=== PATIENT | female | born 1995 | race Caucasian/White ===

== ENCOUNTER 2016-11-10 23:24 | Emergency (ER) | payer SELFPAY ==
[~2016-11-10] VITALS: Ht 172.7 cm; Wt 120.0 kg
[~2016-11-10 23:24] MED LIST: AMOX875T PO; ERYTOIN10 LEFT EYE
[2016-11-10 23:27] VITALS: BP 147/107; PULSE 97; RESP 15; TEMP 99; O2SAT 97
[2016-11-11] MEDS ORDERED: SODIUM CHLOR 0.9% 1000 ML INJ 1,000 ML IV SCH (00:20)
[2016-11-11] MEDS ORDERED: LIDOCAINE VISCOUS 2% SOLN 15 ML UDC PO ONE (00:30)
[2016-11-11] MEDS ORDERED: SODIUM CHLORIDE 0.9% FLUSH 5 ML FLUSH IVF PRN (00:30)
[2016-11-11] MEDS ORDERED: ALUMINUM/MAGNESIUM/SIMETH 30 ML CUP PO ONE ×2 (00:30→00:45)
[2016-11-11 00:42] LABS: AUTOMATED NEUTROPHIL # 4.5 TH/MM3 (1.8-7.7); BASOPHIL # 0.1 TH/MM3 (0-0.2); BASOPHIL % 0.7 % (0.0-2.0); EOSINOPHIL # 0.3 TH/MM3 (0-0.4); EOSINOPHIL % 3.4 % (0.0-4.0); HEMATOCRIT 33.5 % (35.0-46.0); HEMO FLAGS DIFF FINAL; LYMPH % 34.7 % (9.0-44.0); MEAN CORPUSCULAR HEMOGLOBIN 26.3 PG (27.0-34.0); MEAN CORPUSCULAR HGB CONC 33.7 % (32.0-36.0); NEUT % 52.2 % (16.0-70.0); PLATELET COUNT 304 TH/MM3 (150-450); RED BLOOD COUNT 4.29 MIL/MM3 (4.00-5.30); RED CELL DISTRIBUTION WIDTH 14.4 % (11.6-17.2); WHITE BLOOD COUNT 8.7 TH/MM3 (4.0-11.0)
[2016-11-11 00:48] LABS: BLOOD, URINE NEG (NEG); COMMENT (UR) CULT NOT INDICATED; CULTURE IF INDICATED CULT NOT INDICATED; GLUCOSE,URINE NEG (NEG); KETONE, URINE NEG (NEG); MUCUS URINE FEW /lpf (OCC); NITRITE,URINE NEG (NEG); PH, URINE 6.5 (5.0-8.5); SQUAMOUS EPITHELIAL CELL URINE 27 /hpf (0-5); URINE COLOR YELLOW (YELLW/STRAW)
[2016-11-11] MEDS ORDERED: BACT800T5 PO (01:02)
--- NOTE | 2016-11-11 01:03 | PD ---
HPI Chief Complaint: Abdominal Pain Time Seen by Provider: 23:36 Travel History International Travel<30 days: No Contact w/Intl Traveler<30days: No Traveled to known affect area: No History of Present Illness HPI 21-year-old female arrives with 2 weeks of abdominal pain. Initially was suprapubic and has since moved to the epigastric distribution. Onset gradual. She did have some vaginal bleeding in the first week that was not associated with normal menstruation. She denies vaginal discharge. She's had no fever however has experienced nausea with no vomiting. She also reports diarrhea daily for the past 2 weeks. Stool is nonbloody. Patient states she quit smoking tobacco 3 weeks prior. PFSH Past Medical History Hx Anticoagulant Therapy: No ADD: Yes ADHD: Yes Blood Disorders: No Anxiety: Yes Depression: Yes Heart Rhythm Problems: No Cancer: No Cardiovascular Problems: Yes (AORTIC INSUFF) High Cholesterol: No Chemotherapy: No Chest Pain: No Congestive Heart Failure: No Cerebrovascular Accident: No Coronary Artery Disease: Yes (AORTIC INSUFF) Developmental Delay: No Diabetes: No Diminished Hearing: No Endocrine: No Gastrointestinal Disorders: No GERD: Yes Genitourinary: Yes (MULTIPLE UTI'S & YEAST INFECTIONS) Headaches: Yes Heparin Induced Thrombocytopen: No Immune Disorder: No Implanted Vascular Access Dvce: No Musculoskeletal: No Neurologic: Yes (migraines ) Psychiatric: Yes Reproductive: No Respiratory: No Immunizations Current: Yes Migraines: No Seizures: No Thyroid Disease: No Ulcer: No PNEUMOCCOCAL Vaccine (Year): 3 ?: Unknown LMP: 10/22/16 : 3 Para: 0 Miscarriage: 3 : 0 Past Surgical History Hysterectomy: No Other Surgery: Yes (ENDOSCOPY) Social History Alcohol Use: No Tobacco Use: No Substance Use: No Allergies-Medications (Allergen,Severity, Reaction): Coded Allergies: Bee Sting (Verified Allergy, Severe, SWELLING, 11/10/16) Dilaudid (Verified Allergy, Severe, SEVERE ITCH, 11/10/16) Reported Meds & Prescriptions Reported Meds & Active Scripts Active Bactrim DS (Sulfamethoxazole-Trimethoprim) 800-160 Mg Tab 1 Tab PO BID Review of Systems Except as stated in HPI: all other systems reviewed are Neg Physical Exam Narrative GENERAL: 21-year-old female pleasant SKIN: Warm and dry. HEAD: Atraumatic. Normocephalic. EYES: Pupils equal and round. No scleral icterus. No injection or drainage. ENT: No nasal bleeding or discharge. Mucous membranes pink and moist. NECK: Trachea midline. No JVD. CARDIOVASCULAR: Regular rate and rhythm. No murmur appreciated. RESPIRATORY: No accessory muscle use. Clear to auscultation. Breath sounds equal bilaterally. GASTROINTESTINAL: Soft. Minimal tenderness to palpation epigastrium. MUSCULOSKELETAL: No obvious deformities. No clubbing. No cyanosis. No edema. NEUROLOGICAL: Awake and alert. No obvious cranial nerve deficits. Motor grossly within normal limits. Normal speech. PSYCHIATRIC: Appropriate mood and affect; insight and judgment normal. Data Data Last Documented VS Vital Signs Date Time Temp Pulse Resp B/P Pulse Ox O2 Delivery O2 Flow Rate FiO2 11/10/16 23:44 18 11/10/16 23:27 99.0 97 147/107 97 Room Air Orders Complete Blood Count With Diff (11/11/16 00:20) Comprehensive Metabolic Panel (11/11/16 00:20) Lipase (11/11/16 00:20) Urinalysis - C+S If Indicated (11/11/16 00:20) Iv Access Insert/Monitor (11/11/16 00:20) Ecg Monitoring (11/11/16 00:20) Oximetry (11/11/16 00:20) Sodium Chlor 0.9% 1000 Ml Inj (Ns 1000 M (11/11/16 00:20) Sodium Chloride 0.9% Flush (Ns Flush) (11/11/16 00:30) Al-Mag Hy-Si 40-40-4 Mg/Ml Liq (Mag-Al P (11/11/16 00:30) Lidocaine 2% Viscous (Xylocaine 2% Visco (11/11/16 00:30) Ed Urine Pregnancytest Poc (11/11/16 00:20) Al-Mag Hy-Si 40-40-4 Mg/Ml Liq (Mag-Al P (11/11/16 00:45) Labs Laboratory Tests Test 11/11/16 00:30 White Blood Count 8.7 TH/MM3 Red Blood Count 4.29 MIL/MM3 Hemoglobin 11.3 GM/DL Hematocrit 33.5 % Mean Corpuscular Volume 78.0 FL Mean Corpuscular Hemoglobin 26.3 PG Mean Corpuscular Hemoglobin 33.7 % Concent Red Cell Distribution Width 14.4 % Platelet Count 304 TH/MM3 Mean Platelet Volume 8.6 FL Neutrophils (%) (Auto) 52.2 % Lymphocytes (%) (Auto) 34.7 % Monocytes (%) (Auto) 9.0 % Eosinophils (%) (Auto) 3.4 % Basophils (%) (Auto) 0.7 % Neutrophils # (Auto) 4.5 TH/MM3 Lymphocytes # (Auto) 3.0 TH/MM3 Monocytes # (Auto) 0.8 TH/MM3 Eosinophils # (Auto) 0.3 TH/MM3 Basophils # (Auto) 0.1 TH/MM3 CBC Comment DIFF FINAL Differential Comment Urine Color YELLOW Urine Turbidity HAZY Urine pH 6.5 Urine Specific Rayle 1.023 Urine Protein TRACE mg/dL Urine Glucose (UA) NEG mg/dL Urine Ketones NEG mg/dL Urine Occult Blood NEG Urine Nitrite NEG Urine Bilirubin NEG Urine Urobilinogen LESS THAN 2.0 MG/DL Urine Leukocyte Esterase MOD Urine RBC 2 /hpf Urine WBC 10 /hpf Urine Squamous Epithelial 27 /hpf Cells Urine Mucus FEW /lpf Microscopic Urinalysis Comment CULT NOT INDICATED Sodium Level 142 MEQ/L Potassium Level 4.0 MEQ/L Chloride Level 108 MEQ/L Carbon Dioxide Level 27.3 MEQ/L Anion Gap 7 MEQ/L Blood Urea Nitrogen 11 MG/DL Creatinine 0.65 MG/DL Estimat Glomerular Filtration 115 ML/MIN Rate Random Glucose 87 MG/DL Calcium Level 8.9 MG/DL Total Bilirubin 0.3 MG/DL Aspartate Amino Transf 17 U/L (AST/SGOT) Alanine Aminotransferase 17 U/L (ALT/SGPT) Alkaline Phosphatase 79 U/L Total Protein 7.5 GM/DL Albumin 3.3 GM/DL Lipase 94 U/L [facility] Medical Decision Making Medical Screen Exam Complete: Yes Emergency Medical Condition: Yes Medical Record Reviewed: Yes Differential Diagnosis Constipation, Gastritis, Acute Cholecystitis, Biliary Colic, Pancreatitis, CALIX , Hepatitis, Bowel Obstruction, Cystitis, Mesenteric Ischemia, AAA, Appendicitis , Renal Stone/Hydronephrosis, GERD, perforated viscous Narrative Course Urinalysis: Possible UTI versus contamination Urine : Negative CBC & BMP Diagram 11/11/16 00:30 LFTs normal Lipase normal The patient is resting comfortably and feels better, is alert and in no distress. The patients results and examination findings were discussed. The repeat examination is unremarkable and benign. The history, exam, diagnostic testing, and current condition do not suggest any significant pathology to warrant further testing, continued ED treatment, admission, or surgical evaluation at this point. The vital signs have been stable. The patient does not have uncontrollable pain, intractable vomiting, or other significant symptoms. The patient's condition is stable and appropriate for discharge. The patient will pursue further outpatient evaluation with a primary care physician or other designated or consulting physician as indicated in the discharge instructions. The patient expressed understanding and was agreeable with this plan. Diagnosis Primary Impression: Cystitis Additional Impression: Diarrhea Qualified Code: R19.7 - Diarrhea, unspecified type Referrals: Primary Care Physician 2 days Additional Instructions: You have a choice when it comes to health care, and we are glad that you chose [facility]. Hopefully, we have met your expectations on today's visit. You are welcome to return to [facility] at any time, as we are committed to meeting the health care needs of our community. Med/Other Pt SpecificInfo: Prescription(s) given Scripts Sulfamethoxazole-Trimethoprim (Bactrim DS)800-160 Mg Tab1 Tab PO BID #6 TAB Ref 0 Prov:Luis Enrique Norton MD 11/11/16 Disposition: 01 DISCHARGE HOME Condition: Stable Luis Enrique Norton MD Nov 11, 2016 01:03
[2016-11-11 01:13] LABS: ALKALINE PHOSPHATASE 79 U/L (45-117); TOTAL BILIRUBIN ADULT 0.3 MG/DL (0.2-1.0)
[2016-11-11 01:17] LABS: ALT (GPT) 17 U/L (10-53); ANION GAP 7 MEQ/L (5-15); AST (GOT) 17 U/L (15-37); BICARBONATE 27.3 MEQ/L (21.0-32.0); BLOOD UREA NITROGEN 11 MG/DL (7-18); CHLORIDE 108 MEQ/L (98-107); GLOMERULAR FILTRATION RATE 115 ML/MIN (>89); SODIUM (NA) 142 MEQ/L (136-145)
[2016-11-11] MEDS ORDERED: KETOROLAC TROMETHAMINE 30 MG/ML (IVP) VIAL IV PUSH ONE (02:15)
== END 2016-11-11 02:57 | disposition home or self-care (01) ==
LOC: NEPE 23:24
DX: N30.90 Cystitis, unspecified without hematuria (principal); R19.7 Diarrhea, unspecified
CPT/HCPCS: 80053; 81001; 83690; 84703; 85025; 96374; 99284; J1885; J7030

== ENCOUNTER 2017-09-27 13:45 | Emergency (ER) | payer SELFPAY ==
[~2017-09-27 13:45] MED LIST changes: -AMOX875T PO; +BACT800T5 PO; -ERYTOIN10 LEFT EYE
[2017-09-27 13:46] VITALS: BP 134/80; PULSE 64; RESP 18; TEMP 99.2; O2SAT 96
--- NOTE | 2017-09-27 14:08 | PD ---
HPI Chief Complaint: Cold / Flu Symptoms Time Seen by Provider: 14:00 Travel History International Travel<30 days: No Contact w/Intl Traveler<30days: No Traveled to known affect area: No History of Present Illness HPI This is a 21-year-old female who presents with sore throat, nasal congestion, cough since this morning. She is requesting a work note. She denies fever or chills. She has no other medical complaint. Symptom severity is mild. PFSH Past Medical History Hx Anticoagulant Therapy: No ADD: Yes ADHD: Yes Blood Disorders: No Anxiety: Yes Depression: Yes Heart Rhythm Problems: No Cancer: No Cardiovascular Problems: Yes (AORTIC INSUFF) High Cholesterol: No Chemotherapy: No Chest Pain: No Congestive Heart Failure: No Cerebrovascular Accident: No Coronary Artery Disease: Yes (AORTIC INSUFF) Developmental Delay: No Diabetes: No Diminished Hearing: No Endocrine: No Gastrointestinal Disorders: No GERD: Yes Genitourinary: Yes (MULTIPLE UTI'S & YEAST INFECTIONS) Headaches: Yes Heparin Induced Thrombocytopen: No Immune Disorder: No Implanted Vascular Access Dvce: No Musculoskeletal: No Neurologic: Yes (migraines ) Psychiatric: Yes Reproductive: No Respiratory: No Immunizations Current: Yes Migraines: No Seizures: No Thyroid Disease: No Ulcer: No PNEUMOCCOCAL Vaccine (Year): 3 ?: Not LMP: 09/01/2017 : 3 Para: 0 Miscarriage: 3 : 0 Past Surgical History Hysterectomy: No Other Surgery: Yes (ENDOSCOPY) Social History Alcohol Use: No Tobacco Use: No Substance Use: No Allergies-Medications (Allergen,Severity, Reaction): Coded Allergies: bee venom protein (honey bee) (Unverified Allergy, Severe, SWELLING, ) hydromorphone (Unverified Allergy, Severe, SEVERE ITCH, 05/24/17) Reported Meds & Prescriptions Reported Meds & Active Scripts Active No Active Prescriptions or Reported Medications Review of Systems Except as stated in HPI: all other systems reviewed are Neg General / Constitutional: No: Fever HENT: Positive: Sore Throat, Congestion Respiratory: Positive: Cough Physical Exam Narrative GENERAL: Alert well-appearing female. SKIN: Warm and dry. HEAD: Normocephalic. EYES: No injection or drainage. NECK: Supple, trachea midline. No JVD or lymphadenopathy. THROAT: No pharyngeal erythema. No tonsillar hypertrophy. No exudate. Airway is patent. CARDIOVASCULAR: Regular rate and rhythm RESPIRATORY: Breath sounds equal bilaterally. No accessory muscle use. Data Data Last Documented VS Vital Signs Date Time Temp Pulse Resp B/P (MAP) Pulse Ox O2 Delivery O2 Flow Rate FiO2 09/27/17 13:46 99.2 64 18 134/80 (98) 96 Room Air MDM Medical Decision Making Medical Screen Exam Complete: Yes Emergency Medical Condition: No Differential Diagnosis URI, influenza, strep pharyngitis Narrative Course The patient appears to have very mild viral URI. She is well-appearing. Her vital signs are stable. Her primary concern regarding this visit was a note for work. A medical screening exam was performed: At the time of evaluation the presenting medical condition was determined not to be of an emergent nature. The patient was given the option of receiving additional care, but declined. Patient was given options for additional community resources from which to obtain care. The Patient Has Been advised to seek medical attention for their presenting complaint. The patient has been advised to return to the ER at any time if an emergent condition develops. Diagnosis Primary Impression: Encounter for medical screening examination Referrals: [facility] No Active Prescriptions or Reported Meds Disposition: 01 DISCHARGE HOME Condition: Stable Marylu Dey Sep 27, 2017 14:08
== END 2017-09-27 14:23 | disposition left against medical advice (07) ==
LOC: NEPK 13:45
DX: R05 Cough (principal)
CPT/HCPCS: 99281